=== PATIENT | male | born 1930 | race Caucasian/White ===

== ENCOUNTER 2017-04-16 12:35 | Inpatient (IN) | payer OTHER ==
[~2017-04-16] VITALS: Ht 185.4 cm; Wt 111.5 kg
[2017-04-16] MEDS ORDERED: METOPROLOL TARTRATE 1 MG/ML VIAL IV STA (12:47)
[2017-04-16 12:59] LABS: PROTHROMBIN TIME (PATIENT) 10.7 SECONDS (9.0-12.0)
[2017-04-16 13:03] LABS: BLOOD UREA NITROGEN 22 mg/dl (7-18); BUN/CREATININE RATIO 16.9 (10-20); CALCIUM 8.1 mg/dl (8.5-10.1); CARBON DIOXIDE 28 mmol/L (21-32); CHLORIDE 106 mmol/L (98-107); GLUCOSE 108 mg/dl (70-99); MAGNESIUM 2.5 mg/dl (1.8-2.4); POTASSIUM 4.1 mmol/L (3.5-5.1); SODIUM 141 mmol/L (136-145)
--- NOTE | 2017-04-16 13:09 | DIAGNOSTIC IMAGING REPORT ---
CHEST ONE VIEW PORTABLE CLINICAL HISTORY: Chest Pain dyspnea COMPARISON STUDY: None FINDINGS: Moderate emphysematous change. No focal infiltrate. Diaphragms smooth. IMPRESSION: Emphysematous change. No acute process. Electronically signed by: Elvis Maloney M.D. 04/16/2017 1:08 PM Dictated Date/Time: 04/16/2017 1:07 PM
[2017-04-16 13:13] LABS: CKMB/CK RATIO 1.4 (0-3.0); THYROID STIMULATING HORMONE 0.563 uIu/ml (0.300-4.500)
[2017-04-16 13:18] LABS: BASO % 0.6 %; BASO ABS # 0.03 K/uL (0-0.2); COMPLETE YES; EOS % 1.1 %; HEMATOCRIT 41.8 % (42-52); IG% 0.9 %; LYMPH % 19.5 %; LYMPH ABS # 1.05 K/uL (1.2-3.4); MEAN CELL VOLUME 96.8 fL (80-100); MEAN CORPUSCULAR HEMOGLOBIN 32.6 pg (25-34); MEAN CORPUSCULAR HGB CONC 33.7 g/dl (32-36); MEAN PLATELET VOLUME 9.6 fL (7.4-10.4); MONO % 6.9 %; PLATELET COUNT 97 K/uL (130-400); PLT ESTIMATE DECREASED; RED BLOOD COUNT 4.32 M/uL (4.7-6.1); WHITE BLOOD COUNT 5.38 K/uL (4.8-10.8)
[2017-04-16] MEDS ORDERED: FINA1TAB3 PO (13:31)
[2017-04-16] MEDS ORDERED: LEVO25TA5 PO (13:31)
[2017-04-16] MEDS ORDERED: TERA5CAP PO (13:31)
[2017-04-16] MEDS ORDERED: BISA-16 PO (13:31)
[2017-04-16] MEDS ORDERED: OXYC-643 PO (13:31)
[2017-04-16] MEDS ORDERED: IV FLUIDS COMPLETED PRN (14:00)
[2017-04-16 14:25] VITALS: BP 177/82; PULSE 65; TEMP 36.3; O2SAT 94; O2SAT 96; Ht 185.4 cm; Wt 111.5 kg
[2017-04-16] MEDS ORDERED: HEPARIN IV LOW DOSE NO BOLUS SCH (14:28)
[2017-04-16] MEDS ORDERED: ACETAMINOPHEN 325 MG TAB PO PRN (14:30)
[2017-04-16] MEDS ORDERED: ONDANSETRON INJ 2 MG/ML 2 ML VIAL IV PRN (14:30)
[2017-04-16] MEDS ORDERED: METOPROLOL TARTRATE 1 MG/ML VIAL IV PRN (14:30)
[2017-04-16] MEDS ORDERED: HEPARIN 25000 UNIT/500 ML D5W ONE (14:32)
[2017-04-16] MEDS ORDERED: SYN150 PO (14:37)
[2017-04-16] MEDS ORDERED: CARB25TA14 PO (14:37)
[2017-04-16] MEDS ORDERED: FLUT0.15 NAE (14:37)
[2017-04-16] MEDS ORDERED: FINA5TAB PO (14:37)
[2017-04-16] MEDS ORDERED: TERA1CAP63 PO (14:37)
[2017-04-16] MEDS ORDERED: HYDR25CA PO (14:37)
[2017-04-16] MEDS ORDERED: IPRA1AER2 INH (14:37)
[2017-04-16] MEDS ORDERED: FLUT1INH7 INH (14:37)
[2017-04-16] MEDS ORDERED: OXYCODONE/ACETAMINOPHEN 5-325 TAB PO PRN (14:45)
[2017-04-16] MEDS ORDERED: FLUTICASONE PROPIONATE NA SPR 16 GM BTL NAE PRN (14:45)
[2017-04-16] MEDS ORDERED: hydrOXYzine HCL 25 MG TAB PO PRN (14:45)
[2017-04-16] MEDS ORDERED: LEVALBUTEROL/IPRATROPIUM NEB INH PRN (14:45)
[2017-04-16] MEDS ORDERED: LEVALBUTEROL 0.63MG/3 ML NEB INH PRN (15:00)
[2017-04-16] MEDS ORDERED: IPRATROPIUM BROMIDE NEB SOLN 0.02% 2.5 ML VIAL INH PRN (15:00)
--- NOTE | 2017-04-16 15:23 | History and Physical ---
History & Physical Date & Time of Service: Apr 16, 2017 at 14:31 Chief Complaint: Tachycardia, Afib Primary Care Physician: Billy Mcfarland M.D. History of Present Illness Source: patient, clinic records This is an 86 y/o male with PMH of AAA s/p endovascular repair, hypertension, moderate COPD, mild pulmonary hypertension, BPH with chronic urinary retention, CKD stage III, hypothyroidism, and other problems listed below who was referred to the ED from clinic for tachycardia. Patient was seen by Dr. Funes in routine follow up for urinary retention today. Per Dr. Calvo's documentation in [facility], patient was noted to be SOB with elevated HR in urology clinic. EKG showed narrow complex tachycardia 144 bpm with regular HR consistent with paroxysmal SVT or atrial flutter. Pt was assessed by Dr. Calvo in urology clinic. Reportedly on monitor he had intermittent sinus rhythm at 75 bpm followed by recurrent tachycardia. Patient was transferred to ER by EMS and given dose of IV metoprolol 2.5 mg. In the ER patient's HR has been 60s-70s. EKG shows sinus rhythm. He is currently feeling asymptomatic. He notes feeling "heart racing" palpitations in clinic when tachycardia episodes occurred. He reports prior intermittent palpitations for several months. Palpitations occur with minimal exertion. He has been lightheaded. No syncopal episodes. He reports chronic fatigue and ARIAS with just a few steps of ambulation and orthopnea. Pt states his breathing is at baseline. Has chronic dry cough which is unchanged. Pt self caths BID and voids a small amount in between. Denies fever, URI symptoms, syncope, chest pain, N/V/D, dysuria, cloudy urine, calf pain, edema, abnormal bleeding focal neurologic symptoms. Prior stress echo 2013 was non-ischemic with EF 55-59%, no significant valvular disease. Prior right heart cath at [facility] in 2014 showed mild pulmonary hypertension. No prior diagnosis of arrhythmia. Denies hx of DM, TIA, CVA. Past Medical/Surgical History Medical Problems: (1) BPH w urinary obs/LUTS Status: Chronic (2) CKD (chronic kidney disease), stage III Status: Chronic (3) COPD (chronic obstructive pulmonary disease) Status: Chronic (4) Dysphagia, pharyngoesophageal phase Status: Chronic (5) GERD (gastroesophageal reflux disease) Status: Chronic (6) Hypertension Status: Chronic (7) Hypothyroidism Status: Chronic (8) Low back pain Status: Chronic (9) Osteoarthritis Status: Chronic Surgical Problems: (1) H/O colonoscopy with polypectomy Status: Chronic (2) H/O right heart catheterization Permanent Comment: mild pulmonary hypertension, 09/15/2015; [facility] Status: Chronic (3) History of cataract surgery Status: Chronic (4) S/P AAA repair Status: Chronic (5) S/P arthroscopy of knee Status: Chronic (6) S/P rotator cuff repair Status: Chronic (7) S/P tonsillectomy and adenoidectomy Status: Chronic Family History FH: colon cancer FATHER Social History Smoking Status: Former Smoker (quit 1983. prior 1.5 ppd x 40 years) Alcohol Use: 1 beer per day Housing status: lives alone Allergies Coded Allergies: NO KNOWN DRUG ALLERGIES (Unverified Allergy, Unknown, unknown, 04/16/17) Home Medications Scheduled Carbidopa/Levodopa (Sinemet 25MG/250MG), 1 TAB PO TID Finasteride (Proscar), 5 MG PO DAILY Fluticasone Furoate-Vilanterol (Breo Ellipta 200-25 Mcg/INH), 1 PUFF INH DAILY Levothyroxine Sodium (Synthroid), 150 MCG PO DAILY Terazosin Hcl (Hytrin), 10 MG PO HS Scheduled PRN Fluticasone Propionate (Nasal) (Flonase Allergy Relief), 2 SPRAYS JOSEF DAILY PRN for Nasal Congestion Hydroxyzine Pamoate (Vistaril), 1 CAP PO TID PRN for Itching Ipratropium-Albuterol (Combivent Respimat), 2 PUFFS INH Q6H PRN for Wheezing Oxycodone/Acetaminophen 5MG/325MG (Oxycodone/Acetaminophen 5MG/325MG), 1 TABLET PO Q4H PRN for Moderate Pain Review of Systems Ten systems reviewed and negative except as noted in HPI. Physical Exam Vital Signs Date Time Temp Pulse Resp B/P (MAP) Pulse Ox O2 Delivery O2 Flow Rate FiO2 04/16/17 14:13 61 16 162/78 94 Room Air 04/16/17 13:20 62 16 124/70 95 Room Air 04/16/17 13:02 66 16 138/72 95 Room Air 04/16/17 12:59 75 04/16/17 12:53 71 154/72 04/16/17 12:51 69 16 154/72 93 Room Air 04/16/17 12:45 36.6 73 19 126/79 94 Room Air 04/16/17 12:45 94 Room Air General Appearance: WD/WN, no apparent distress Head: normocephalic, atraumatic Eyes: normal inspection, PERRL, EOMI ENT: pharynx normal, + pertinent finding (hard of hearing) Neck: supple, no JVD, trachea midline Respiratory/Chest: lungs clear, normal breath sounds, no respiratory distress, no accessory muscle use Cardiovascular: regular rate, rhythm, no murmur Abdomen/GI: normal bowel sounds, non tender, soft Extremities/Musculoskelatal: normal inspection, no calf tenderness, no pedal edema Neurologic/Psych: alert, normal mood/affect, oriented x 3, + pertinent finding (no focal deficit on gross examination) Skin: normal color, warm/dry Diagnostics Laboratory Results Results Past 24 Hours Test 04/16/17 12:15 Range/Units White Blood Count 5.38 4.8-10.8 K/uL Red Blood Count 4.32 4.7-6.1 M/uL Hemoglobin 14.1 14.0-18.0 g/dL Hematocrit 41.8 42-52 % Mean Corpuscular Volume 96.8 80-100 fL Mean Corpuscular Hemoglobin 32.6 25-34 pg Mean Corpuscular Hemoglobin Concent 33.7 32-36 g/dl Platelet Count 97 130-400 K/uL Mean Platelet Volume 9.6 7.4-10.4 fL Neutrophils (%) (Auto) 71.0 % Lymphocytes (%) (Auto) 19.5 % Monocytes (%) (Auto) 6.9 % Eosinophils (%) (Auto) 1.1 % Basophils (%) (Auto) 0.6 % Neutrophils # (Auto) 3.82 1.4-6.5 K/uL Lymphocytes # (Auto) 1.05 1.2-3.4 K/uL Monocytes # (Auto) 0.37 0.11-0.59 K/uL Eosinophils # (Auto) 0.06 0-0.5 K/uL Basophils # (Auto) 0.03 0-0.2 K/uL RDW Standard Deviation 48.7 36.4-46.3 fL RDW Coefficient of Variation 13.7 11.5-14.5 % Immature Granulocyte % (Auto) 0.9 % Immature Granulocyte # (Auto) 0.05 0.00-0.02 K/uL Platelet Estimate DECREASED Prothrombin Time 10.7 9.0-12.0 SECONDS Prothromb Time International Ratio 1.0 0.9-1.1 Activated Partial Thromboplast Time 25.0 21.0-31.0 SECONDS Partial Thromboplastin Ratio 1.0 Sodium Level 141 136-145 mmol/L Potassium Level 4.1 3.5-5.1 mmol/L Chloride Level 106 98-107 mmol/L Carbon Dioxide Level 28 21-32 mmol/L Anion Gap 7.0 3-11 mmol/L Blood Urea Nitrogen 22 7-18 mg/dl Creatinine 1.30 0.60-1.40 mg/dl Est Creatinine Clear Calc Drug Dose 56.0 ml/min Estimated GFR () 58.1 Estimated GFR (Non- 50.1 BUN/Creatinine Ratio 16.9 10-20 Random Glucose 108 70-99 mg/dl Calcium Level 8.1 8.5-10.1 mg/dl Magnesium Level 2.5 1.8-2.4 mg/dl Total Creatine Kinase 94 39-308 U/L Creatine Kinase MB 1.3 0.5-3.6 ng/ml Creatine Kinase MB Ratio 1.4 0-3.0 Troponin I < 0.015 0-0.045 ng/ml Thyroid Stimulating Hormone (TSH) 0.563 0.300-4.500 uIu/ml Free Thyroxine 1.46 0.80-1.60 ng/dl Diagnostic Radiology CHEST ONE VIEW PORTABLE CLINICAL HISTORY: Chest Pain dyspnea COMPARISON STUDY: None FINDINGS: Moderate emphysematous change. No focal infiltrate. Diaphragms smooth. IMPRESSION: Emphysematous change. No acute process. EKG sinus rhythm, 1st degree AV block, occasional PVC, rate 68 bpm, nonspecific T wave inversion in aVL, no ST abnormality Impression Assessment and Plan TACHYCARDIA Unclear onset; had intermittent palpations for several months Discovered at urology clinic; was SOB with elevated HR; EKG showed narrow complex tachycardia 144 bpm with regular HR consistent with paroxysmal SVT or atrial flutter; assessed by Dr. Calvo at clinic; monitor showed intermittent sinus rhythm 75 bpm followed by recurrent tachycardia Sent to ER as recommended by Dr. Calvo Received Lopressor 2.5 mg IV on arrival to ER In ER has been in sinus rhythm rate 60s-70s Currently asymptomatic Electrolytes and TSH WNL; no clear infection- will check UA Prior stress echo 08/2014 was non-ischemic with EF 55-59%, no significant valvular disease; Prior right heart cath at [facility] in 2014 showed mild pulmonary hypertension Check echo Lopressor 2.5 mg q6h PRN HR >130 CHADS2 score is 2 for age and hypertension Start on IV heparin Consult cardiology HYPERTENSION BP intermittently elevated to 150s-160s systolic in ER Likely due to anxiety of being in ER Monitor MODERATE COPD Not in acute exacerbation Continue Breo Ellipta inhaler Will change PRN ipratropium-albuterol inhaler to PRN Xopenex-Atrovent neb due to tachycardia BPH WITH CHRONIC URINARY RETENTION Continue finasteride and terazosin Self cath BID as he does at home CKD STAGE III Creat is stable from baseline Monitor renal function HYPOTHYROIDISM Continue levothyroxine CHRONIC LOW BACK PAIN Continue PRN Percocet DVT PROPHYLAXIS Heparin drip CODE STATUS Full code per my discussion with the patient. States he would not want prolonged life support. DISPOSITION Observation to telemetry Follows with Dr. Mcfarland for primary care Patient seen in collaboration with Dr. White. Please see his addendum. 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 Dr Nilda White VTE Prophylaxis VTE Risk Assessment Done? Y/N: Yes Risk Level: Moderate
[2017-04-16] MEDS ORDERED: PNEUMOCOCCAL POLYSACCHARIDES 25 MCG/0.5 ML VIAL/SYR IM. ONE (17:15)
[2017-04-16] MEDS ORDERED: PNEUMOCOCCAL ADMINISTRATION CHARGE ONE (17:15)
[2017-04-16] MEDS ORDERED: HEPARIN 25,000 UNIT/500ML D5W 500 ML IV PRN (18:15)
--- NOTE | 2017-04-16 19:22 | EMERGENCY ROOM VISIT NOTE ---
History Report prepared by Paul: Carolyn Fleming Under the Supervision of: Dr. Mehrdad Batista M.D. First contact with patient: 12:35 Chief Complaint: CARDIAC ASSESSMENT Stated Complaint: TACHYCARDIA, AFIB History of Present Illness The patient is an 86 year old male who presents to the Emergency Room requesting a cardiac assessment. The patient reports that he went to a urology appointment for issues with his prostate. According to Doctor Lubna, the patient has an EKG performed that revealed SVT vs A-fib. Dr. Calvo reports that he was evaluated by him at his cardiology office and was referred to the ED. Dr. Calvo believes he should be evaluated and treated further. The patient state that he has felt more weak and tired than usual. He reports that he has been lightheaded as well. He denies any chest pain and swelling in his legs. He notes that currently he feels pretty normal. Source of History: patient, other (Dr. Calvo) Onset: prior to arrival Position: other (global) Quality: other (global) Timing: other (episode) Associated Symptoms: + fatigue, + weakness, No chest pain Note: The patient complains of lightheadedness. The patient denies any leg swelling. Review of Systems See HPI for pertinent positives & negatives. A total of 10 systems reviewed and were otherwise negative. Past Medical & Surgical Medical Problems: (1) BPH w urinary obs/LUTS (2) Chronic renal disease (3) CKD (chronic kidney disease), stage III (4) COPD (chronic obstructive pulmonary disease) (5) Dysphagia, pharyngoesophageal phase (6) GERD (gastroesophageal reflux disease) (7) Hypertension (8) Hypothyroidism (9) Low back pain (10) Osteoarthritis (11) Tachycardia Surgical Problems: (1) H/O colonoscopy with polypectomy (2) H/O right heart catheterization (3) History of cataract surgery (4) S/P AAA repair (5) S/P arthroscopy of knee (6) S/P rotator cuff repair (7) S/P tonsillectomy and adenoidectomy Family History No pertinent family history Social History Smoking Status: Former Smoker Marital Status: single Housing Status: lives alone Current/Historical Medications Scheduled Carbidopa/Levodopa (Sinemet 25MG/250MG), 1 TAB PO TID Finasteride (Proscar), 5 MG PO DAILY Fluticasone Furoate-Vilanterol (Breo Ellipta 200-25 Mcg/INH), 1 PUFF INH DAILY Levothyroxine Sodium (Synthroid), 150 MCG PO DAILY Terazosin Hcl (Hytrin), 10 MG PO HS Scheduled PRN Fluticasone Propionate (Nasal) (Flonase Allergy Relief), 2 SPRAYS JOSEF DAILY PRN for Nasal Congestion Hydroxyzine Pamoate (Vistaril), 1 CAP PO TID PRN for Itching Ipratropium-Albuterol (Combivent Respimat), 2 PUFFS INH Q6H PRN for Wheezing Oxycodone/Acetaminophen 5MG/325MG (Oxycodone/Acetaminophen 5MG/325MG), 1 TABLET PO Q4H PRN for Moderate Pain Allergies Coded Allergies: NO KNOWN DRUG ALLERGIES (Unverified Allergy, Unknown, unknown, 04/16/17) Physical Exam Vital Signs Date Time Temp Pulse Resp B/P (MAP) Pulse Ox O2 Delivery O2 Flow Rate FiO2 04/16/17 13:20 62 16 124/70 95 Room Air 04/16/17 13:02 66 16 138/72 95 Room Air 04/16/17 12:59 75 04/16/17 12:53 71 154/72 04/16/17 12:51 69 16 154/72 93 Room Air 04/16/17 12:45 36.6 73 19 126/79 94 Room Air 04/16/17 12:45 94 Room Air Physical Exam GENERAL: Patient is well appearing and in no acute distress. HEENT: No acute trauma, normocephalic atraumatic, mucous membranes moist, no nasal congestion, no scleral icterus. NECK: No stridor, no adenopathy, no meningismus, trachea is midline. LUNGS: No dyspnea. Clear to auscultation and equal bilaterally. No wheeze, no rhonchi. HEART: Frequently flipping back and forth between rapid heart rate and normal sinus rhythm. No murmurs, rubs, gallops appreciated. ABDOMEN: Soft, nontender, bowel sounds positive, no masses appreciated, no peritonitis. BACK: No midline tenderness, no CVA tenderness EXTREMITIES: Normal motion all extremities, no cyanosis, no edema. NEUROLOGIC: Alert and oriented, no acute motor or sensory deficits, no focal weakness, cranial nerves grossly intact. SKIN: No rash, no jaundice, no diaphoresis. Medical Decision & Procedures ER Provider Diagnostic Interpretation: Radiology results and stated below per my review and radiologist interpretation: CHEST ONE VIEW PORTABLE CLINICAL HISTORY: Chest Pain dyspnea COMPARISON STUDY: None FINDINGS: Moderate emphysematous change. No focal infiltrate. Diaphragms smooth. IMPRESSION: Emphysematous change. No acute process. Electronically signed by: Elvis Maloney M.D. 04/16/2017 1:08 PM Dictated Date/Time: 04/16/2017 1:07 PM Laboratory Results 04/16/17 12:15 Red Blood Count 4.32, Mean Corpuscular Volume 96.8, Mean Corpuscular Hemoglobin 32.6, Mean Corpuscular Hemoglobin Concent 33.7, Mean Platelet Volume 9.6, Neutrophils (%) (Auto) 71.0, Lymphocytes (%) (Auto) 19.5, Monocytes (%) (Auto) 6.9, Eosinophils (%) (Auto) 1.1, Basophils (%) (Auto) 0.6, Neutrophils # (Auto) 3.82, Lymphocytes # (Auto) 1.05, Monocytes # (Auto) 0.37, Eosinophils # (Auto) 0.06, Basophils # (Auto) 0.03 04/16/17 12:15 Test 04/16/17 12:15 White Blood Count 5.38 K/uL (4.8-10.8) Red Blood Count 4.32 M/uL (4.7-6.1) Hemoglobin 14.1 g/dL (14.0-18.0) Hematocrit 41.8 % (42-52) Mean Corpuscular Volume 96.8 fL (80-100) Mean Corpuscular Hemoglobin 32.6 pg (25-34) Mean Corpuscular Hemoglobin Concent 33.7 g/dl (32-36) Platelet Count 97 K/uL (130-400) Mean Platelet Volume 9.6 fL (7.4-10.4) Neutrophils (%) (Auto) 71.0 % Lymphocytes (%) (Auto) 19.5 % Monocytes (%) (Auto) 6.9 % Eosinophils (%) (Auto) 1.1 % Basophils (%) (Auto) 0.6 % Neutrophils # (Auto) 3.82 K/uL (1.4-6.5) Lymphocytes # (Auto) 1.05 K/uL (1.2-3.4) Monocytes # (Auto) 0.37 K/uL (0.11-0.59) Eosinophils # (Auto) 0.06 K/uL (0-0.5) Basophils # (Auto) 0.03 K/uL (0-0.2) RDW Standard Deviation 48.7 fL (36.4-46.3) RDW Coefficient of Variation 13.7 % (11.5-14.5) Immature Granulocyte % (Auto) 0.9 % Immature Granulocyte # (Auto) 0.05 K/uL (0.00-0.02) Platelet Estimate DECREASED Prothrombin Time 10.7 SECONDS (9.0-12.0) Prothromb Time International Ratio 1.0 (0.9-1.1) Activated Partial Thromboplast Time 25.0 SECONDS (21.0-31.0) Partial Thromboplastin Ratio 1.0 Anion Gap 7.0 mmol/L (3-11) Est Creatinine Clear Calc Drug Dose 56.0 ml/min Estimated GFR () 58.1 Estimated GFR (Non- 50.1 BUN/Creatinine Ratio 16.9 (10-20) Calcium Level 8.1 mg/dl (8.5-10.1) Magnesium Level 2.5 mg/dl (1.8-2.4) Total Creatine Kinase 94 U/L (39-308) Creatine Kinase MB 1.3 ng/ml (0.5-3.6) Creatine Kinase MB Ratio 1.4 (0-3.0) Troponin I < 0.015 ng/ml (0-0.045) Thyroid Stimulating Hormone (TSH) 0.563 uIu/ml (0.300-4.500) Free Thyroxine 1.46 ng/dl (0.80-1.60) Laboratory results as reviewed by me. Medications Administered Medications (Trade) Dose Ordered Sig/Asher Route Start Time Stop Time Status Last Admin Dose Admin Metoprolol Tartrate (Lopressor Iv) 2.5 mg NOW STAT IV 04/16/17 12:47 04/16/17 12:48 DC 04/16/17 12:53 2.5 MG ECG Indication: other (cardiac assessment) Rate (beats per minute): 69 Rhythm: sinus rhythm Findings: 1st degree AV block, PVC (multiple), no acute ischemic change Comparison ECG Date: no prior available ED Course 1215: Prior to the patient's arrival, i discussed the case with Dr. Calvo who made me aware of the case. 1244: The patient was evaluated in room A10. A complete history and physical exam was performed. 1247: Ordered Lopressor Iv 2.5 mg IV. 1334: Discussed the patient's case with Dr. White. The patient will be evaluated for further treatment and disposition. 1349: I reevaluated the patient and he is feeling well. He is agreeable to come into the hospital. Medical Decision Medication Reconciliation: I attest that I have personally reviewed the patient 's current medication list. Blood Pressure Screening: Patient was found to have a slightly elevated blood pressure due to circumstances and will continued to be monitored by inpatient providers. Differential: NSR, SVT, PACs, PVCs, Cardiac Dysrhythmia, Endocrine Dysfunction, Electrolyte/Metabolic Abnormality, Pulmonary Embolism, Infectious, GI, amongst other pathologies entertained. 86 yr old male who was at urology clinic for evaluation of chronic prostate issues was found to be quite tachycardic and transferred to ED for further evaluation. He is rapidly flipping back and forth from HR 60s70s to 140s. Unclear if afib/flutter vs SVT. No clear evidence infectious etiology. Labs look OK. CXR with chronic lung disease already known. With discussion Dr Calvo he was given small dose IV lopressor. This seems to have resolved tachycardic issues without causing hypotension nor bradycardia. Stable though given unclear cause and possible need for pacemaker/ICD I have consulted Hospitalist at Dr Calvo request. Consults Consulting Physician: Dr. Calvo Returned Call: [phone] Prior to the patient's arrival, i discussed the case with Dr. Calvo who made me aware of the case. Additional Consults: Time Called: 1330 Consulted Physician: Dr. White Returned Call: [phone] Additional Comments: Discussed the patient's case with Dr. White. The patient will be evaluated for further treatment and disposition. Impression Primary Impression: Tachycardia-bradycardia syndrome Scribe Attestation The scribe's documentation has been prepared under my direction and personally reviewed by me in its entirety. I confirm that the note above accurately reflects all work, treatment, procedures, and medical decision making performed by me. Departure Information Dispostion Being Evaluated By Hospitalist Referrals No Doctor, Assigned (PCP) Patient Instructions [facility]
[2017-04-16] MEDS: CARBIDOPA/LEVODOPA 25-250 1 EA TAB PO SCH (20:32)
[2017-04-16 20:41] LABS: PARTIAL THROMBOPLASTIN RATIO 1.5
[2017-04-16] MEDS ORDERED: HEPARIN IV BOLUS 4,500 UNIT in SYRINGE 0 ML IV ONE (21:00)
[2017-04-16 22:44] VITALS: BP 138/73; PULSE 72; TEMP 36.7; O2SAT 91
[2017-04-17] VITALS (15 sets, daily range): BP systolic 120–180; BP diastolic 63–88; PULSE 61–87; TEMP 36.3–36.8; O2SAT 91–98
[2017-04-17 00:42] LABS: URINE APPEARANCE CLEAR (CLEAR); URINE BILIRUBIN NEG (NEG); URINE COLOR YELLOW; URINE EPITHELIAL CELL AUTO >30 /lpf (0-5); URINE NITRITE POS (NEG); URINE SPECIFIC GRAVITY 1.014 (1.000-1.030); UROBILINOGEN NEG (NEG); ZZURINE CULT IF INDIC CATH YES
[2017-04-17 00:44] LABS: MANUAL MICROSCOPIC REQUIRED? NO; REVIEW REQ? NO
[2017-04-17 03:39] LABS: HEMATOCRIT 39.9 % (42-52); MEAN CELL VOLUME 96.8 fL (80-100); MEAN CORPUSCULAR HEMOGLOBIN 31.6 pg (25-34); MEAN CORPUSCULAR HGB CONC 32.6 g/dl (32-36); RED BLOOD COUNT 4.12 M/uL (4.7-6.1); WHITE BLOOD COUNT 5.26 K/uL (4.8-10.8)
[2017-04-17 03:41] LABS: MEAN PLATELET VOLUME 9.5 fL (7.4-10.4); PLATELET COUNT 97 K/uL (130-400)
[2017-04-17 04:02] LABS: PARTIAL THROMBOPLASTIN RATIO 2.6
[2017-04-17 04:04] LABS: BUN/CREATININE RATIO 19.9 (10-20); CALCIUM 7.9 mg/dl (8.5-10.1); CREATININE 1.2 mg/dl (0.60-1.40); MAGNESIUM 2.4 mg/dl (1.8-2.4); POTASSIUM 3.7 mmol/L (3.5-5.1)
[2017-04-17] MEDS: LEVOTHYROXINE 150 MCG TAB PO SCH (06:04)
--- NOTE | 2017-04-17 08:46 | ECHOCARDIOGRAM REPORT ---
*NOTICE TO RECEIVING [employer] This information is strictly Confidential and protected under [place] law. [place] law prohibits you from making any further disclosure of this information unless further disclosure is expressly permitted by the written consent of the person to whom it pertains or is authorized by law. A general authorization for the release of medical or other information is not sufficient for this purpose. Hospital accepts no responsibility if the information is made available to any other person, INCLUDING THE PATIENT. Interpretation Summary * Conclusions -- * The study was technically limited. * The left ventricle is normal in size. * No regional wall motion abnormalities noted. * Ejection Fraction = 60-65%. Procedure Details * The study was technically difficult. * The study was technically limited. * Limited views were obtained. * There were technical limitations due to patient'sPoor acoustic windows secondary to severe lung disease. Left Ventricle * The left ventricle is normal in size. * There is mild concentric left ventricular hypertrophy. * Ejection Fraction = 60-65%. * No regional wall motion abnormalities noted. Atria * The left atrial size is normal. * Right atrial size is normal. * Lipomatous hypertrophy of the interatrial septum is noted. Mitral Valve * The mitral valve is grossly normal. * There is no mitral valve stenosis. * There is no mitral regurgitation noted. Tricuspid Valve * The tricuspid valve is not well visualized, but is grossly normal. * There is trace tricuspid regurgitation. Aortic Valve * The aortic valve is not well visualized. * No hemodynamically significant valvular aortic stenosis. * There is no significant aortic regurgitation. Great Vessels * The aortic root is normal size. Pericardium/Pleural * There is no pericardial effusion. Great Vessels * Normal inferior vena cava diameter and respiratory variation suggests normal central venous pressure. Left Ventricular Diastolic Function * Grade I diastolic dysfunction, (abnormal relaxation pattern). MMode 2D Measurements and Calculations LVAd ap4 35.8 cm\S\2 LVLd ap4 8.5 cm EDV(MOD-sp4) 123.8 ml EDV(sp4-el) 128.2 ml LVAs ap4 19.7 cm\S\2 LVLs ap4 7.9 cm ESV(MOD-sp4) 40.5 ml ESV(sp4-el) 41.3 ml EF(MOD-sp4) 67.3 % EF(sp4-el) 67.8 % LVAd ap2 36.3 cm\S\2 LVLd ap2 8.7 cm EDV(MOD-sp2) 121.4 ml EDV(sp2-el) 129.0 ml LVAs ap2 18.3 cm\S\2 LVLs ap2 7.1 cm ESV(MOD-sp2) 39.2 ml ESV(sp2-el) 40.0 ml EF(MOD-sp2) 67.8 % EF(sp2-el) 69.0 % LVLd %diff 2.3 % EDV(MOD-bp) 125.4 ml LVLs %diff -11.94 % ESV(MOD-bp) 41.9 ml EF(MOD-bp) 66.6 % SV(MOD-sp4) 83.3 ml SI(MOD-sp4) 35.2 ml/m\S\2 SV(MOD-sp2) 82.3 ml SI(MOD-sp2) 34.7 ml/m\S\2 SV(MOD-bp) 83.6 ml SI(MOD-bp) 35.3 ml/m\S\2 SV(sp4-el) 86.9 ml SI(sp4-el) 36.7 ml/m\S\2 SV(sp2-el) 89.0 ml SI(sp2-el) 37.6 ml/m\S\2 Doppler Measurements and Calculations MV E max antoni 58.8 cm/sec MV A max antoni 76.0 cm/sec MV E/A 0.77 MV dec time 0.24 sec LV V1 max PG 5.9 mmHg LV V1 max 121.6 cm/sec TR max antoni 194.3 cm/sec
[2017-04-17] MEDS: CARBIDOPA/LEVODOPA 25-250 1 EA TAB PO SCH ×3 (09:02→20:29)
[2017-04-17] MEDS: FINASTERIDE 5 MG TAB PO SCH (09:02)
--- NOTE | 2017-04-17 09:12 | Progress Note ---
Medicine Progress Note Date & Time of Visit: Apr 17, 2017 at 09:06. Subjective patient seen resting in bed, comfortable daughter Yary at bedside states he had a good night denies chest pain, palpitations, dizziness, dyspnea noted to have narrow complex tachycardia episodes on tele, correlated when patient is moving otherwise no other symptoms Objective Last 8 Hrs Date Time Temp Pulse Resp B/P (MAP) Pulse Ox O2 Delivery O2 Flow Rate FiO2 04/17/17 08:03 36.3 61 18 174/88 (116) 94 Room Air 04/17/17 08:00 Room Air 04/17/17 04:12 36.5 70 18 143/79 (100) 92 04/17/17 04:00 Room Air Physical Exam: General- oriented x 3, not in distress, speaks in sentences with no effort Head- atraumatic Eyes- EOMI, anicteric ENT- oropharynx clear Neck- supple, no JVD, no adenopathy Lungs- clear breath sounds bilaterally Heart- regular rhythm; no murmur, normal rate Abdomen- normal bowel sounds, soft, nontender Extremities- no pretibial edema, no calf tenderness; peripheral pulses intact Neuro- alert, oriented x 3; no gross focal neuro deficits Skin- warm & dry Laboratory Results: Last 24 Hours Test 04/16/17 12:15 04/16/17 20:20 04/16/17 22:45 04/17/17 03:08 White Blood Count 5.38 K/uL 5.26 K/uL Red Blood Count 4.32 M/uL 4.12 M/uL Hemoglobin 14.1 g/dL 13.0 g/dL Hematocrit 41.8 % 39.9 % Mean Corpuscular Volume 96.8 fL 96.8 fL Mean Corpuscular Hemoglobin 32.6 pg 31.6 pg Mean Corpuscular Hemoglobin Concent 33.7 g/dl 32.6 g/dl Platelet Count 97 K/uL 97 K/uL Mean Platelet Volume 9.6 fL 9.5 fL Neutrophils (%) (Auto) 71.0 % Lymphocytes (%) (Auto) 19.5 % Monocytes (%) (Auto) 6.9 % Eosinophils (%) (Auto) 1.1 % Basophils (%) (Auto) 0.6 % Neutrophils # (Auto) 3.82 K/uL Lymphocytes # (Auto) 1.05 K/uL Monocytes # (Auto) 0.37 K/uL Eosinophils # (Auto) 0.06 K/uL Basophils # (Auto) 0.03 K/uL RDW Standard Deviation 48.7 fL 48.7 fL RDW Coefficient of Variation 13.7 % 13.7 % Immature Granulocyte % (Auto) 0.9 % Immature Granulocyte # (Auto) 0.05 K/uL Platelet Estimate DECREASED Prothrombin Time 10.7 SECONDS Prothromb Time International Ratio 1.0 Activated Partial Thromboplast Time 25.0 SECONDS 39.1 SECONDS 66.7 SECONDS Partial Thromboplastin Ratio 1.0 1.5 2.6 Sodium Level 141 mmol/L 140 mmol/L Potassium Level 4.1 mmol/L 3.7 mmol/L Chloride Level 106 mmol/L 105 mmol/L Carbon Dioxide Level 28 mmol/L 31 mmol/L Anion Gap 7.0 mmol/L 4.0 mmol/L Blood Urea Nitrogen 22 mg/dl 24 mg/dl Creatinine 1.30 mg/dl 1.20 mg/dl Est Creatinine Clear Calc Drug Dose 56.0 ml/min 60.7 ml/min Estimated GFR () 58.1 64.0 Estimated GFR (Non- 50.1 55.2 BUN/Creatinine Ratio 16.9 19.9 Random Glucose 108 mg/dl 106 mg/dl Calcium Level 8.1 mg/dl 7.9 mg/dl Magnesium Level 2.5 mg/dl 2.4 mg/dl Total Creatine Kinase 94 U/L Creatine Kinase MB 1.3 ng/ml Creatine Kinase MB Ratio 1.4 Troponin I < 0.015 ng/ml Thyroid Stimulating Hormone (TSH) 0.563 uIu/ml Free Thyroxine 1.46 ng/dl Urine Color YELLOW Urine Appearance CLEAR Urine pH 6.0 Urine Specific [place] 1.014 Urine Protein NEG Urine Glucose (UA) NEG Urine Ketones NEG Urine Occult Blood NEG Urine Nitrite POS Urine Bilirubin NEG Urine Urobilinogen NEG Urine Leukocyte Esterase SMALL Urine WBC (Auto) 10-30 /hpf Urine RBC (Auto) 0-4 /hpf Urine Hyaline Casts (Auto) 0 /lpf Urine Epithelial Cells (Auto) >30 /lpf Urine Bacteria (Auto) 4+ Date/Time Source Procedure Growth Status 04/16/17 22:45 Urine,Catheterized Urine Culture Pending Received Assessment & Plan 86 year old male with history of COPD, Pulmonary Hypertension, AAA s/p Repair, BPH, Hypothyroidism presenting with tachycardia. 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 ATRIAL FIBRILLATION Unclear onset; had intermittent palpations for several months Discovered at urology clinic; was SOB with elevated HR; EKG showed narrow complex tachycardia 144 bpm with regular HR consistent with paroxysmal SVT or atrial flutter; assessed by Dr. Calvo at clinic; monitor showed intermittent sinus rhythm 75 bpm followed by recurrent tachycardia Sent to ER Received Lopressor 2.5 mg IV on arrival to ER In ER has been in sinus rhythm rate 60s-70s Electrolytes and TSH WNL; no clear infection- will check UA echo pending for Pacemaker today per discussion with Dr. Neff maintain NPO HYPERTENSION mild elevation this morning monitor MODERATE COPD stable Continue Breo Ellipta inhaler BPH WITH CHRONIC URINARY RETENTION Continue finasteride and terazosin Self cath BID as he does at home CKD STAGE III crea at baseline HYPOTHYROIDISM tsh/t4 normal Continue levothyroxine CHRONIC LOW BACK PAIN Continue PRN Percocet DVT PROPHYLAXIS hold anticoag for now for pacemaker placement CODE STATUS Full code DISPOSITION pending lives at home Follows with Dr. Mcfarland for primary care Current Inpatient Medications: Current Inpatient Medications Medications (Trade) Dose Ordered Sig/Asher Route Start Time Stop Time Status Last Admin Dose Admin Miscellaneous (Iv Fluids Completed) 1 ea PRN PRN N/A 04/16/17 14:00 04/16/18 13:59 Acetaminophen (Tylenol Tab) 650 mg Q4H PRN PO 04/16/17 14:30 05/16/17 14:29 Ondansetron HCl (Zofran Inj) 4 mg Q6H PRN IV 04/16/17 14:30 05/16/17 14:29 Metoprolol Tartrate (Lopressor Iv) 2.5 mg Q6 PRN IV 04/16/17 14:30 05/16/17 14:29 Carbidopa/Levodopa (Sinemet 25/ 250MG Tab) 1 tab TID PO 04/16/17 21:00 05/16/17 20:59 04/17/17 09:02 1 TAB Finasteride (Proscar Tab) 5 mg DAILY PO 04/17/17 09:00 05/17/17 08:59 04/17/17 09:02 5 MG Fluticasone Propionate (Flonase Nasal [place]) 2 sprays DAILY PRN JOSEF 04/16/17 14:45 05/16/17 14:44 Levothyroxine Sodium (Synthroid Tab) 150 mcg DAILYBB PO 04/17/17 06:00 05/17/17 06:59 04/17/17 06:04 150 MCG Oxycodone/ Acetaminophen (Percocet 5-325mg Tab) 1 tab Q4H PRN PO 04/16/17 14:45 04/30/17 14:44 Terazosin HCl (Hytrin Cap) 10 mg HS PO 04/16/17 21:00 05/16/17 20:59 04/16/17 20:33 10 MG Miscellaneous Information (Order Awaiting Action) 1 ea QS N/A 04/16/17 16:00 05/16/17 15:59 Hydroxyzine HCl (Vistaril Tab) 25 mg TID PRN PO 04/16/17 14:45 05/16/17 14:44 Ipratropium [place] (Atrovent 0.02% 0.5MG/2.5ML Neb) 0.5 mg Q6H PRN INH 04/16/17 15:00 05/16/17 14:59 Levalbuterol (Xopenex 0.63 Mg/ 3 Ml Neb) 0.63 mg Q6H PRN INH 04/16/17 15:00 05/16/17 14:59
--- NOTE | 2017-04-17 10:12 | CARDIOLOGY CONSULTATION ---
DATE OF CONSULTATION: 04/17/2017 The patient seen and examined. Chart, medications, telemetry reviewed. REFERRING: Dr. Harp. PRIMARY CARE PHYSICIAN: Dr. Billy Mcfarland. INDICATIONS: Tachybrady syndrome. HISTORY OF PRESENT ILLNESS: The patient is an 86-year-old male whose past history is notable for chronic obstructive lung disease, stage III chronic renal insufficiency, history of atherosclerotic peripheral vascular disease, status post endovascular abdominal aortic aneurysm repair, BPH, who presented yesterday for evaluation of urinary symptoms. On initial assessment in the urology clinic, he was found to be significantly tachycardic with EKG demonstrating atrial tachycardia with rapid ventricular response, rate 140s with intermittent spontaneous conversion to sinus rhythm with associated pauses and bradycardia, with baseline rhythm in sinus rhythm with intraventricular conduction delay and first-degree AV block. He is referred for hospitalization. He does note intermittent episodes of lightheadedness and dizziness in the past. Notes no true syncope. Notes no chest pains. Notes no tachypalpitations. Notes no dizziness with exertion. Appetite and weight have been stable. He has had no history of TIA or stroke. Notes no acute neurologic complaints. Notes no unexplained fevers or infections. Has chronic dyspnea secondary to underlying lung disease. He is not O2 dependent at this time. He has undergone prior evaluations including right heart catheterization in 08/2015, which demonstrated mild pulmonary hypertension. He has also had past stress testing which was negative for ischemia. He notes no underlying history of rheumatic fever or scarlet fever. Notes no history of bleeding difficulties. Notes no melena, hematochezia, dysuria or hematuria. Has chronic sleep disruption, ill defined. Lipids have been normal without lipid lowering therapies. ALLERGIES: VICODIN. MEDICATIONS: Prior to hospitalization were terazosin 10 mg at bedtime, finasteride 5 mg every day, oxycodone p.r.n. back pain, levothyroxine 150 mcg p.o. daily, furosemide 40 mg p.o. daily, Flonase nasal inhaler, Sinemet 25 mg/250 mg t.i.d. PAST SURGICAL HISTORY: Notable for prior tonsillectomy, cataract surgery, abdominal aortic aneurysm repair, arthroscopic knee surgery, rotator cuff repair. FAMILY HISTORY: Not specifically notable for cardiac disease. SOCIAL HISTORY: The patient has a [id number] history of tobacco use but quit remotely in 1983. Drinks up to 1 beer per day, none to excess. PHYSICAL EXAMINATION: GENERAL: The patient is a pleasant, age-appropriate male, currently in no acute distress. He has not specifically been aware of tachyarrhythmias prior to hospitalization, though has had intermittent dizzy spells and lightheaded spells on current examination. VITAL SIGNS: Heart rate is 60, blood pressure is 174/88. HEENT: Normocephalic, atraumatic. NECK: Thick. LUNGS: Reveal diminished breath sounds but without rhonchi, rale or wheeze. CARDIOVASCULAR: Regular with less than grade 1/6 systolic murmur. ABDOMEN: Obese, soft, nontender. EXTREMITIES: Without cyanosis or clubbing. There is no peripheral edema. There are intact distal pulses at 2/4. There are no audible abdominal or femoral bruits. DATA: EKG on presentation last night demonstrated sinus rhythm with atrial and ventricular ectopy, marked first-degree AV block, left axis deviation. Echocardiogram today demonstrates preserved LV systolic function, EF 60-65%, no significant valvular disease, technically limited study. LABORATORY STUDIES: White cell count is 5.2, hemoglobin is 13.0, hematocrit is 39.9. Sodium is 140, potassium is 3.7, chloride is 105, bicarb is 31, BUN is 24, creatinine is 1.2. Troponin is less than 0.015. TSH is 0.5. Chest x-ray revealed no infiltrate or edema, with emphysematous changes. IMPRESSION: An 86-year-old male with chronic obstructive lung disease, past history of peripheral vascular disease, status post abdominal aortic aneurysm repair, endovascular, in 2014, presented for routine urologic evaluation yesterday and was found to have intermittent atrial tachycardia with pauses and bradyarrhythmias on conversion. He has underlying conduction system disease on baseline EKG with intraventricular conduction delay and marked first-degree atrioventricular block. Findings reflect tachybrady syndrome with the patient noting symptoms of occasional lightheadedness and dizziness. RECOMMENDATIONS: We will keep n.p.o. and refer for EP evaluation. Question of whether intervene on atrial tachycardia, likely multifocal atrial tachycardia versus pacemaker insertion and initiation of antiarrhythmic therapy, likely initially with calcium channel yady given underlying obstructive lung disease and preserved LV function. Discussed with the patient, he is tentatively scheduled for possible pacemaker this afternoon if indicated. We will follow the patient in the hospital. JEREMÍAS
--- NOTE | 2017-04-17 13:01 | Progress Note ---
Progress Note Date of Service Apr 17, 2017. Progress Note FULL EP CONSULT DICTATED; PT WITH TBS FOR PPM TODAY
[2017-04-17] MEDS ORDERED: LIDOCAINE HCL 1% 20 ML VIAL ONE ×2 (14:55→15:18)
[2017-04-17] MEDS ORDERED: BACITRACIN 50000 UNIT VIAL ONE (14:55)
[2017-04-17] MEDS ORDERED: BUPIVACAINE 0.5 % 5 MG/1 ML MPF 30ML VIAL ONE ×2 (14:55→15:18)
[2017-04-17] MEDS ORDERED: KEFZOL SPECIAL PROCEDURE STOCK 1 GM ADDVIAL IV ONE (15:07)
[2017-04-17] MEDS ORDERED: FENTANYL CITRATE INJ 50 MCG/1 ML 2 ML VIAL ONE ×2 (15:11→16:11)
[2017-04-17] MEDS ORDERED: MIDAZOLAM HCL 5 MG/ML 1 ML VIAL ONE (15:11)
--- NOTE | 2017-04-17 16:40 | History & Physical Bridge Note ---
H&P Re-Evaluation Bridge Note: I have examined the patient, reviewed the History & Physical and in the interval since the performance of the History & Physical I have noted the following changes of clinical significance: PT WITH TBS FOR PPM
--- NOTE | 2017-04-17 16:41 | Procedure Note ---
Pre-Mod Sedation Assessment General Date of Moderate Sedation: Apr 17, 2017. Vital Signs: Vital Signs Past 12 Hours Date Time Temp Pulse Resp B/P (MAP) Pulse Ox O2 Delivery O2 Flow Rate FiO2 04/17/17 12:00 Room Air 04/17/17 11:42 36.3 71 18 157/76 (103) 95 Room Air 04/17/17 10:42 36.3 61 18 174/88 94 Room Air 04/17/17 08:03 36.3 61 18 174/88 (116) 94 Room Air 04/17/17 08:00 Room Air Review Cardiovascular: regular rate, rhythm Abdomen: soft Lungs: lungs clear Airway Class: II Pre-Sedation Airway Assessment Oral Cavity: WNL Short Thick Neck: No Hx of Sleep Apnea: No Smoking Status: Former Smoker Mallampati Classification: Class II ASA Classification: Class II Procedure Planning Contraindications-for Mod Sed: None Yes Notes The planned sedation has been discussed with the patient and consent obtained. I have identified the patient, determined the appropriateness of sedation and have assessed the patient immediately prior to the procedure. All medicine(s) and interventions are by my order.
--- NOTE | 2017-04-17 16:41 | Procedure Note ---
Post-Mod Sedation Assessment General Date of Moderate Sedation Apr 17, 2017. Vital Signs: Vital Signs Past 12 Hours Date Time Temp Pulse Resp B/P (MAP) Pulse Ox O2 Delivery O2 Flow Rate FiO2 04/17/17 12:00 Room Air 04/17/17 11:42 36.3 71 18 157/76 (103) 95 Room Air 04/17/17 10:42 36.3 61 18 174/88 94 Room Air 04/17/17 08:03 36.3 61 18 174/88 (116) 94 Room Air 04/17/17 08:00 Room Air Review - Discharge Criteria Vital Signs Stable: Yes Alert/Oriented/Conversant: Yes Returned to Baseline Mental St: Yes Nausea Absent/Minimal: Yes Pain/Discomfort/Absent/Minimal: Yes Normal/Baseline Respirations: Yes Active Bleeding?: No Pt Received D/C Instructions: N/A Prescriptions Given: None Specific Proced. D/C Criteria Distal Pulses Present (Cardiac: N/A Groin site assessed-Card Cath: N/A Voided Prior To Discharge: N/A Discharged Patients Adult Escort/Transportation: N/A
--- NOTE | 2017-04-17 16:42 | [facility] Post Operative Brief Note ---
Immediate Operative Summary Operative Date Apr 17, 2017. Pre-Operative Diagnosis tbs Post-Operative Diagnosis same, probably PAT Procedure(s) Performed dual chamber rate responsive permanent pacemaker Surgeon kwadwo lugo [employer] Fab[employer]ator Surgeon(s) none Estimated Blood Loss 30cc Findings none Fluids (cc crystalloids) 200cc Specimens none Drains none Anesthesia 5mg versed and 125mcg fentanyl Complication(s) None Disposition PCU
[2017-04-17] MEDS ORDERED: ACETAMINOPHEN/CODEINE 300/30MG TAB PO PRN (16:45)
[2017-04-17] MEDS: METOPROLOL SUCC 25MG EXT REL TAB PO SCH (17:45)
--- NOTE | 2017-04-17 19:23 | OPERATIVE REPORT ---
DATE OF OPERATION: 04/17/2017 PREOPERATIVE DIAGNOSIS: Tachy-ashley syndrome. POSTOPERATIVE DIAGNOSIS: Same, paroxysmal atrial tachycardia. PROCEDURE: Dual chamber rate responsive permanent pacemaker under fluoroscopic guidance. SURGEON: Dr. Cheryl Up. GOLF COURSE MECHANIC: None. ANESTHESIA: Monitored and a conscious sedation given under my supervision, administered by Sravan Love. Start time 15:30. End time: 16:30. A total of 5 mg of Versed, 125 mcg of fentanyl. INTRAVENOUS FLUIDS: 200 mL. BLOOD LOSS: 30 mL. COMPLICATIONS: None. CONDITION: Stable. URINE OUTPUT: Not available. SPECIMENS: None. FINDINGS: None. DRAINS: None. INDICATIONS: This is an 86-year-old gentleman with past medical history for COPD, chronic kidney disease stage III, peripheral vascular disease status post endovascular repair of AAA, BPH. He ended up being transferred from the urology outpatient office to [facility] secondary to tachy-ashley syndrome, where he was having atrial tachycardia with rapid ventricular response in the 140s-150s, followed then by marked sinus bradycardia. He has an underlying idioventricular conduction delay and first-degree AV block. Due to evidence of tachy-ashley syndrome, he was recommended a permanent pacemaker. CONSENT: Consent was obtained prior to the patient going into the electrophysiology lab. The patient was informed of the risks, benefits and alternatives to the procedure. Risks include, but not limited to sudden cardiac , cardiac arrhythmias , cerebrovascular accident, myocardial infarction, injury to the blood vessels, chamber of the heart, lungs, bleeding and infection. The patient understood these risks and agreed to have the procedure as planned. Informed consent was obtained. DESCRIPTION OF THE PROCEDURE: The patient was brought into the electrophysiology lab in fasting state, he was connected to continuous property assessment monitor. A time-out was performed to ensure the patient identity and procedure correctly. The patient was prepped and draped over the left infraclavicular space in normal surgical standard fashion. He received prophylactic antibiotics prior to incision. Monitored conscious sedation was given throughout the procedure for the patient's comfort level. Hayes precautions were maintained throughout the procedure. A 10 mL of 1% lidocaine and bupivacaine mixture were given in the left deltopectoral groove. Incision was made in the left deltopectoral groove. Blunt dissection was performed then to identify the cephalic vein. The cephalic vein was identified and isolated using 0 silk ties. The vein was nicked with an 11 blade dayanna. A guidewire was inserted without any resistance. An 8-Latvian sheath was inserted over the guidewire without any resistance. The dilator was removed and a second guidewire was inserted through the 8-Latvian sheath without any resistance. The sheath was removed, flushed and dilator reinserted over it and then the sheath was reinserted over one of the guidewires without any resistance. The guidewire and dilator were removed and the right ventricular pacing lead was advanced into the right ventricle; however, it was not long enough, so we repositioned that into the right atrium and under fluoroscopic guidance into the right atrial appendage and adequate pacing and sensing thresholds and no diaphragmatic stimulation with high output pacing. The sheath was peeled away and lead was fixated to pectoralis muscle using 0 silk suture. A second 8-Latvian sheath was advanced over the retained guidewire without any resistance. The guidewire and dilator were removed. The right ventricular pacing lead was advanced into the right ventricle and positioned into the right ventricular apex under fluoroscopic guidance. There was adequate pacing and sensing thresholds and no diaphragmatic stimulation with high output pacing. The 8-Latvian sheath was peeled away and lead was fixated to pectoralis muscle using 0 silk suture. There was a lot of back bleeding as the cephalic vein was a big vein, so a 2-0 Vicryl pursestring was placed around the vein to prevent any further back bleeding. Another 10 mL of 1% lidocaine were given in the pectoralis fascia and then using blunt dissection, then the pectoralis fascia over the pectoralis muscle, a pacemaker pocket was created. The pocket was flushed with copious amounts of bacitracin and saline wash and inspected for hemostasis. The pulse generator was then attached to the leads making sure that the pins were in appropriate position passed the set screws and the set screws were all tightened. The pulse generator was then placed in the pocket, making sure that the leads were lying flat beneath the device and a stay stitch using 0 silk suture was used to secure the device to the pectoralis muscle. Incision was closed in 3-layer fashion using a 2-0 Vicryl interrupted suture followed by 3-0 Vicryl suture followed by a 4-0 Monocryl stitch and then Dermabond was applied. EQUIPMENT: 1. Pulse generator is a Medtronic Advisana [id number], serial number [id number]. 2. Right atrial lead Medtronic 5076-58 cm, serial number [id number]. 3. Right ventricular lead Medtronic 5076-65 cm, serial number [id number]. INTRAOPERATIVE TESTIN. Right atrial lead: P-wave is 2.2 millivolts, impedance 580 ohms, threshold 0.5 volts at 0.8 milliamps. 2. Right ventricular lead: R-wave is 12.4 millivolts, impedance 940 ohms, threshold 1.2 volts at 1.3 milliamps. FINAL MEASUREMENTS THROUGH THE DEVICE: 1. P-wave is 5.9 millivolts, impedance 456 ohms, threshold 0.25 volts at 0.4 milliseconds. 2. Right ventricular lead: R-wave is 9.5 millivolts, impedance 608 ohms, threshold 0.5 volts at 0.4 milliseconds. FINAL PARAMETERS: 1. MVP-R 60/120. Right atrial amplitude 3.5 volts, pulse width 0.4 milliseconds, sensitivity 0.3 millivolts. 2. Right ventricular amplitude 3.5 volts, pulse width 0.4 milliseconds, sensitivity 0.9 millivolts. IMPRESSION: Successful implantation of a dual chamber rate responsive permanent pacemaker under fluoroscopic guidance secondary to tachy-ashley syndrome. PLAN: Monitor the patient overnight, 12-lead EKG. No heparin is necessary. The patient does not have atrial fibrillation. He is having atrial tachycardia, throughout the case he was having some. Would recommend starting metoprolol 25 mg daily, given first dose now, probably need to increase this if his blood pressure will allow. He is not allowed to lift the left elbow or the left shoulder for 1 month. He cannot lift more than 10 pounds with the left arm for 2 weeks. He can shower tomorrow, let water run over the incision, do not scrub it. He should follow up in our Device Clinic in 7-10 days for device and wound check. According to his daughter, [facility] she will let us know. I attest to the content of the Intraoperative Record and any orders documented therein. Any exceptions are noted below. JEREMÍAS
--- NOTE | 2017-04-17 19:47 | CARDIOLOGY CONSULTATION ---
DATE OF CONSULTATION: 04/17/2017 REFERRING PHYSICIAN: Dr. Neff. REASON FOR CONSULTATION: Tachy-ashley syndrome. HISTORY OF PRESENT ILLNESS: This is an 86-year-old gentleman who has a past medical history for COPD, chronic kidney disease, stage 3, history of peripheral vascular disease, status post endovascular abdominal aortic aneurysm repair, BPH. 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 He was referred to the hospital. He does report some intermittent lightheadedness and dizziness as well as some palpitations in the past. Denies any chest pains or shortness of breath. Electrophysiology was consulted for a permanent pacemaker. ALLERGIES: VICODIN. HOME MEDICATIONS: Terazosin 10 mg at bedtime, finasteride 5 mg, oxycodone as needed, Levothyroxine 150 mcg, Lasix 40 mg, Flonase and Sinemet. PAST SURGICAL HISTORY: Tonsillectomy, cataract surgery, abdominal aortic aneurysm repair, arthroscopy of the knee, rotator cuff repair. PAST MEDICAL HISTORY: As noted above in HPI. FAMILY HISTORY: Noncontributory. SOCIAL HISTORY: He has a history of [id number] tobacco use, quit back in 1983, drinks about 1 beer a day. REVIEW OF SYSTEMS: All other 10-point review of systems are reviewed and are essentially negative at this time. See HPI for pertinent positives. PHYSICAL EXAMINATION: VITAL SIGNS: Temperature 36.3, heart rate 71, respirations 18, blood pressure 157/76. Oxygen saturation 95% on room air. GENERAL: He is awake, alert and oriented x3, in no acute distress, sitting up in the bed comfortably. HEENT: Normocephalic, atraumatic. Extraocular motion intact. Sclerae are nonicteric. Mucous membranes moist. NECK: Supple, no carotid bruits appreciated. No JVD. Carotid upstrokes normal. CARDIOVASCULAR: Normal S1, S2, regular rate and rhythm, no murmur appreciated. No palpable heave or thrill. PULMONARY: Clear to auscultation bilaterally. No wheezes, rales or rhonchi. ABDOMEN: Positive bowel sounds, soft, nontender, nondistended. EXTREMITIES: No clubbing or cyanosis in all fingers. No edema bilateral lower extremities. Peripheral pulses intact. NEUROLOGIC: Grossly intact. SKIN: Grossly intact. PERTINENT TESTING: EKG on admission was sinus rhythm with marked sinus arrhythmia at 68 beats per minute, first-degree AV block and possible inferior infarct. Monitor strips have been sinus with some runs of PAT. Twelve lead EKG from the outpatient cardiology is SVT probably a PAT at 140 beats per minute and complete right bundle-branch block, nonspecific ST abnormalities. Echocardiogram preserved ejection fraction of 60%-65%, nondilated cardiac chambers, and no significant valvular pathology. Hematology: WBC is 5.26, hemoglobin 13, hematocrit 39.9, platelets 97. Chemistry: Sodium 140, potassium 3.7, chloride 104, carbon dioxide 31, BUN 24, creatinine 1.2, glucose 106, calcium is 7.6, magnesium 2.4. X-ray: Emphysematous changes. IMPRESSION: 1. Tachy-ashley syndrome. 2. Paroxysmal atrial tachycardia. 3. History of endovascular abdominal aortic aneurysm repair. 4. Chronic kidney disease, stage 3. 5. Chronic obstructive pulmonary disease. 6. Benign prostatic hypertrophy. PLAN: Recommend a permanent pacemaker. The patient understood the risks, benefits, alternatives to the procedure. Risks include but not limited sudden cardiac , cardiac arrhythmias, cerebrovascular accident, myocardial infarction, injury to the blood vessels, chamber of the heart, lungs, bleeding and infection. The patient understood these risks and agreed to the procedure as planned. He will undergo the procedure today. JEREMÍAS
[2017-04-18 03:49] VITALS: BP 115/67; PULSE 101; TEMP 36.7; O2SAT 91
[2017-04-18 04:53] LABS: HEMATOCRIT 38.2 % (42-52); MEAN CELL VOLUME 97.4 fL (80-100); MEAN CORPUSCULAR HEMOGLOBIN 32.7 pg (25-34); RED BLOOD COUNT 3.92 M/uL (4.7-6.1); WHITE BLOOD COUNT 6.15 K/uL (4.8-10.8)
[2017-04-18 04:56] LABS: MEAN CORPUSCULAR HGB CONC 33.5 g/dl (32-36); MEAN PLATELET VOLUME 9.4 fL (7.4-10.4); PLATELET COUNT 93 K/uL (130-400)
[2017-04-18] MEDS: LEVOTHYROXINE 150 MCG TAB PO SCH (05:33)
[2017-04-18 05:34] LABS: BUN/CREATININE RATIO 15.5 (10-20); CALCIUM 8.1 mg/dl (8.5-10.1); CREATININE 1.4 mg/dl (0.60-1.40); POTASSIUM 4.5 mmol/L (3.5-5.1)
--- NOTE | 2017-04-18 07:46 | DIAGNOSTIC IMAGING REPORT ---
CHEST 2 VIEWS ROUTINE HISTORY: EXACT TIME ORDERED Evaluate for pneumothorax and lead placement COMPARISON: Chest 04/16/2017. FINDINGS: The lungs are clear. Cardiac silhouette is normal in size. No pleural effusions. No pneumothorax. Interval placement left-sided dual-chamber pacemaker. The leads appear intact. IMPRESSION: Left-sided dual-chamber pacemaker. No pneumothorax. Electronically signed by: Cali Ojeda M.D. 04/18/2017 7:45 AM Dictated Date/Time: 04/18/2017 7:44 AM
[2017-04-18 07:57] VITALS: BP 146/73; PULSE 63; TEMP 36.6; O2SAT 93
[2017-04-18] MEDS: METOPROLOL SUCC 25MG EXT REL TAB PO SCH (08:01)
[2017-04-18] MEDS: CARBIDOPA/LEVODOPA 25-250 1 EA TAB PO SCH ×2 (08:01→14:26)
[2017-04-18] MEDS: FINASTERIDE 5 MG TAB PO SCH (08:01)
--- NOTE | 2017-04-18 08:35 | Cardiology Follow-Up ---
Subjective Subjective Date of Service: Apr 18, 2017. Pt evaluation today including: conversation w/ patient, physical exam, lab review Pain: none Problem List Medical Problems: (1) Tachycardia-bradycardia syndrome Status: Acute Review of Systems Constitutional: No fatigue Respiratory: No shortness of breath, No dyspnea at rest Cardiac: No chest pain, No edema, No palpitations Abdomen: No diarrhea Endo: No fatigue Objective Vital Signs Last Vital Signs Documentation Date Time Temp Pulse Resp B/P (MAP) Pulse Ox O2 Delivery O2 Flow Rate FiO2 04/18/17 07:57 36.6 63 16 146/73 (97) 93 Room Air Physical Exam: General Appearance: WD/WN, no apparent distress Eyes: bilateral eyes PERRL, bilateral eyes EOMI Neck: supple, no JVD Respiratory/Chest: lungs clear, normal breath sounds Cardiovascular: regular rate, rhythm, no edema, no murmur Abdomen: normal bowel sounds, soft Extremities: no pedal edema Neurologic/Psychiatric: alert, oriented x 3 Skin: warm/dry, no rash Assessment and Plan Impression: 1. TBS s/p dual chamber 04/17/2017 2. PAT improved with BB 3. COPD 4. UTI 5. BPH Plan: -Ok for discharge home from cardiac perspective today -Continue toprol 25mg daily upon discharge; we can titrate up the dose as an outpatient -Not allowed to left the left elbow over the left shoulder for 1 month and no lifting more than 10 pounds with the left arm for 2 weeks -Can shower tomorrow -Wound and device check in 7-10 days in [facility] device clinic -F/u with general cardiology in 3-4 weeks -ABX for UTI as per hospitalist Discharge planning: home Medications: Medications Administered Medications (Trade) Dose Ordered Sig/Asher Route Start Time Stop Time Status Last Admin Dose Admin Metoprolol Tartrate (Lopressor Iv) 2.5 mg NOW STAT IV 04/16/17 12:47 04/16/17 12:48 DC 04/16/17 12:53 2.5 MG Heparin Sodium/ Dextrose (Heparin 25,000 Unit/500ml D5W) 25,000 unit STK-MED ONCE .ROUTE 04/16/17 14:32 04/16/17 14:33 DC 04/16/17 14:38 25,000 UNIT Carbidopa/Levodopa (Sinemet 25/ 250MG Tab) 1 tab TID PO 04/16/17 21:00 05/16/17 20:59 04/18/17 08:01 1 TAB Finasteride (Proscar Tab) 5 mg DAILY PO 04/17/17 09:00 05/17/17 08:59 04/18/17 08:01 5 MG Levothyroxine Sodium (Synthroid Tab) 150 mcg DAILYBB PO 04/17/17 06:00 05/17/17 06:59 04/18/17 05:33 150 MCG Oxycodone/ Acetaminophen (Percocet 5-325mg Tab) 1 tab Q4H PRN PO 04/16/17 14:45 04/30/17 14:44 04/17/17 17:44 1 TAB Terazosin HCl (Hytrin Cap) 10 mg HS PO 04/16/17 21:00 05/16/17 20:59 04/17/17 20:29 10 MG Heparin Sodium (Porcine) 4500 unit/Syringe 4.5 ml @ 10 mls/min NOW ONCE IV 04/16/17 21:00 04/16/17 21:01 DC 04/16/17 21:06 10 MLS/MIN Cefazolin Sodium (Kefzol Iv) 2 gm STK-MED ONCE IV 04/17/17 15:07 04/17/17 15:08 DC 04/17/17 15:07 2 GM Midazolam HCl (Versed Inj) 5 mg STK-MED ONCE .ROUTE 04/17/17 15:11 04/17/17 15:12 DC 04/17/17 15:11 5 MG Fentanyl Citrate (Fentanyl Inj) 100 mcg STK-MED ONCE .ROUTE 04/17/17 15:11 04/17/17 15:12 DC 04/17/17 15:11 100 MCG Fentanyl Citrate (Fentanyl Inj) 100 mcg STK-MED ONCE .ROUTE 04/17/17 16:11 04/17/17 16:12 DC 04/17/17 16:11 25 MCG Acetaminophen/ Codeine Phosphate (Tylenol w/ Codeine #3 Tab) 1 tab for pain scale 4-6 2 t... Q4H PRN PO 04/17/17 16:45 05/17/17 16:44 04/18/17 03:55 1 TAB Metoprolol Succinate (Toprol Xl Tab) 25 mg QAM PO 04/17/17 18:00 05/17/17 17:59 04/18/17 08:01 25 MG Lab Results: Telemetry: SR 86bpm APCs ECG: SR CXR: No PTX RA & RV lead in place PPM Interrogation Today: Normal function Stable RA & RV testing from implant and wnl 8.5% AP Last 24 Hours Test 04/18/17 04:33 White Blood Count 6.15 K/uL Red Blood Count 3.92 M/uL Hemoglobin 12.8 g/dL Hematocrit 38.2 % Mean Corpuscular Volume 97.4 fL Mean Corpuscular Hemoglobin 32.7 pg Mean Corpuscular Hemoglobin Concent 33.5 g/dl RDW Standard Deviation 48.6 fL RDW Coefficient of Variation 13.7 % Platelet Count 93 K/uL Mean Platelet Volume 9.4 fL Activated Partial Thromboplast Time 25.9 SECONDS Partial Thromboplastin Ratio 1.0 Sodium Level 139 mmol/L Potassium Level 4.5 mmol/L Chloride Level 104 mmol/L Carbon Dioxide Level 32 mmol/L Anion Gap 3.0 mmol/L Blood Urea Nitrogen 22 mg/dl Creatinine 1.40 mg/dl Est Creatinine Clear Calc Drug Dose 51.8 ml/min Estimated GFR () 53.1 Estimated GFR (Non- 45.8 BUN/Creatinine Ratio 15.5 Random Glucose 101 mg/dl Calcium Level 8.1 mg/dl
[2017-04-18] MEDS ORDERED: CEFTRIAXONE SOD INJ 1 GM in DEXTROSE 5% ADD-VANTAGE 50ML 50 ML IV SCH (10:00)
--- NOTE | 2017-04-18 11:26 | Progress Note ---
Medicine Progress Note Date & Time of Visit: Apr 18, 2017 at 11:16. Subjective s/p pacemaker placement yesterday states he feels fine overall today has minimal pain on the pacemaker insertion site no dizziness, chest pain, dyspnea, palpitations no abdominal pain ,nausea/vomiting, fever/ chills, dysuria, hematuria denies other symptoms states he is ready and would like to be discharged today no other symptoms Objective Last 8 Hrs Date Time Temp Pulse Resp B/P (MAP) Pulse Ox O2 Delivery O2 Flow Rate FiO2 04/18/17 08:00 Room Air 04/18/17 07:57 36.6 63 16 146/73 (97) 93 Room Air 04/18/17 04:00 Room Air 04/18/17 03:49 36.7 101 17 115/67 (83) 91 Room Air Physical Exam: General- oriented x 3, not in distress, speaks in sentences with no effort Eyes- anicteric Neck- no JVD Lungs- clear breath sounds bilaterally, no rales/wheezes Chest- pacemaker insertion site left lateral chest wall: incision site healing well, mild hematoma and swelling- no warmth Heart- regular rhythm; no murmur, normal rate Abdomen- normal bowel sounds, soft, nontender Extremities- no pretibial edema, no calf tenderness; peripheral pulses intact Neuro- alert, oriented x 3; no gross focal neuro deficits Skin- warm & dry Laboratory Results: Last 24 Hours Test 04/18/17 04:33 White Blood Count 6.15 K/uL Red Blood Count 3.92 M/uL Hemoglobin 12.8 g/dL Hematocrit 38.2 % Mean Corpuscular Volume 97.4 fL Mean Corpuscular Hemoglobin 32.7 pg Mean Corpuscular Hemoglobin Concent 33.5 g/dl RDW Standard Deviation 48.6 fL RDW Coefficient of Variation 13.7 % Platelet Count 93 K/uL Mean Platelet Volume 9.4 fL Activated Partial Thromboplast Time 25.9 SECONDS Partial Thromboplastin Ratio 1.0 Sodium Level 139 mmol/L Potassium Level 4.5 mmol/L Chloride Level 104 mmol/L Carbon Dioxide Level 32 mmol/L Anion Gap 3.0 mmol/L Blood Urea Nitrogen 22 mg/dl Creatinine 1.40 mg/dl Est Creatinine Clear Calc Drug Dose 51.8 ml/min Estimated GFR () 53.1 Estimated GFR (Non- 45.8 BUN/Creatinine Ratio 15.5 Random Glucose 101 mg/dl Calcium Level 8.1 mg/dl Assessment & Plan 86 year old male with history of COPD, Pulmonary Hypertension, AAA s/p Repair, BPH, Hypothyroidism presenting with tachycardia. PAROXYSMAL ATRIAL TACHYCARDIA Unclear onset; had intermittent palpations for several months Discovered at urology clinic; was SOB with elevated HR; EKG showed narrow complex tachycardia 144 bpm with regular HR consistent with paroxysmal SVT or atrial flutter; assessed by Dr. Calvo at clinic; monitor showed intermittent sinus rhythm 75 bpm followed by recurrent tachycardia, sent to ER Received Lopressor 2.5 mg IV on arrival to ER Electrolytes and TSH WNL echo: n The study was technically limited. n The left ventricle is normal in size. n No regional wall motion abnormalities noted. n Ejection Fraction = 60-65%. -- s/p Dual Chamber Pacemaker Placement by Dr. Ghosh 04/17/17 doing fine post procedure -- discharge plan: -Continue toprol 25mg daily upon discharge -Not allowed to left the left elbow over the left shoulder for 1 month and no lifting more than 10 pounds with the left arm for 2 weeks -Can shower tomorrow -Wound and device check in 7-10 days in [facility] device clinic -F/u with general cardiology in 3-4 weeks GRAM NEGATIVE BACILLI UTI -- Urine culture: gram neg bacilli, >100,000 colonies -- given Cefazolin x 1 day, Ceftriaxone x 1 day -- continue with Levaquin 250mg po x 5 days will ff up final urine culture report and call patient if organism resistant to Levaquin HYPERTENSION Metoprolol 25mg po daily started stable MODERATE COPD stable Continue Breo Ellipta inhaler BPH WITH CHRONIC URINARY RETENTION Continue finasteride and terazosin Self cath BID CKD STAGE III crea at baseline HYPOTHYROIDISM tsh/t4 normal Continue levothyroxine CHRONIC LOW BACK PAIN Continue PRN Percocet CODE STATUS Full code DISPOSITION d/c home today when ok with Cardio ff up with PCP in 1 week Pacemaker Check next week in [facility] in 2-3 weeks c/o Dr. Neff Discharge planning: home Current Inpatient Medications: Current Inpatient Medications Medications (Trade) Dose Ordered Sig/Asher Route Start Time Stop Time Status Last Admin Dose Admin Miscellaneous (Iv Fluids Completed) 1 ea PRN PRN N/A 04/16/17 14:00 04/16/18 13:59 Acetaminophen (Tylenol Tab) 650 mg Q4H PRN PO 04/16/17 14:30 05/16/17 14:29 Ondansetron HCl (Zofran Inj) 4 mg Q6H PRN IV 04/16/17 14:30 05/16/17 14:29 Metoprolol Tartrate (Lopressor Iv) 2.5 mg Q6 PRN IV 04/16/17 14:30 05/16/17 14:29 Carbidopa/Levodopa (Sinemet 25/ 250MG Tab) 1 tab TID PO 04/16/17 21:00 05/16/17 20:59 04/18/17 08:01 1 TAB Finasteride (Proscar Tab) 5 mg DAILY PO 04/17/17 09:00 05/17/17 08:59 04/18/17 08:01 5 MG Fluticasone Propionate (Flonase Nasal [place]) 2 sprays DAILY PRN JOSEF 04/16/17 14:45 05/16/17 14:44 Levothyroxine Sodium (Synthroid Tab) 150 mcg DAILYBB PO 04/17/17 06:00 05/17/17 06:59 04/18/17 05:33 150 MCG Oxycodone/ Acetaminophen (Percocet 5-325mg Tab) 1 tab Q4H PRN PO 04/16/17 14:45 04/30/17 14:44 04/17/17 17:44 1 TAB Terazosin HCl (Hytrin Cap) 10 mg HS PO 04/16/17 21:00 05/16/17 20:59 04/17/17 20:29 10 MG Miscellaneous Information (Order Awaiting Action) 1 ea QS N/A 04/16/17 16:00 05/16/17 15:59 Hydroxyzine HCl (Vistaril Tab) 25 mg TID PRN PO 04/16/17 14:45 05/16/17 14:44 Ipratropium [place] (Atrovent 0.02% 0.5MG/2.5ML Neb) 0.5 mg Q6H PRN INH 04/16/17 15:00 05/16/17 14:59 Levalbuterol (Xopenex 0.63 Mg/ 3 Ml Neb) 0.63 mg Q6H PRN INH 04/16/17 15:00 05/16/17 14:59 Acetaminophen/ Codeine Phosphate (Tylenol w/ Codeine #3 Tab) 1 tab for pain scale 4-6 2 t... Q4H PRN PO 04/17/17 16:45 05/17/17 16:44 04/18/17 03:55 1 TAB Metoprolol Succinate (Toprol Xl Tab) 25 mg QAM PO 04/17/17 18:00 05/17/17 17:59 04/18/17 08:01 25 MG Ceftriaxone Sodium 1 gm/ Dextrose 50 ml @ 100 mls/hr QAM IV 04/18/17 10:00 04/28/17 09:59 04/18/17 10:13 100 MLS/HR
[2017-04-18] MEDS ORDERED: LEVO-17 PO (11:32)
[2017-04-18] MEDS ORDERED: TPRSR25 PO (11:32)
[2017-04-18 11:37] VITALS: BP 132/71; PULSE 70; TEMP 36.5; O2SAT 94
--- NOTE | 2017-04-18 11:40 | Discharge Instructions ---
Discharge Instructions Date of Service Apr 18, 2017. Admission Reason for Admission: Tachycardia Discharge Discharge Diagnosis / Problem: Paroxysmal Atrial Tachycardia Discharge Goals Goal(s): Diagnostic testing, Therapeutic intervention Activity Recommendations Activity Limitations: as noted below (no heavy exertion until re-evaluated by Primary Care Physician; ) Lifting Limitations: no more than 10 pounds (on the left arm), until after follow-up appointment Exercise/Sports Limitations: until after follow-up appointment Shower/Bathe: tomorrow Driving or Machine Use: no driving until re-evaluated by Primary Care Physician Not allowed to left the left elbow over the left shoulder for 1 month and no lifting more than 10 pounds with the left arm for 2 weeks PLEASE REVIEW YOUR NEW MEDICATION LIST AND FOLLOW INSTRUCTIONS CAREFULLY. CALL ROLL COVERER OR RETURN TO ER IMMEDIATELY IF WITH INCREASING PAIN, REDNESS, SWELLING, DISCHARGE ON THE PACEMAKER SITE. CALL PRIMARY CARE PHYSICIAN IF WITH FEVER/CHILLS, INCREASING ABDOMINAL PAIN, CHANGES WITH URINATION. CALL 911 IF WITH PALPITATIONS, DIZZINESS, SHORTNESS OF BREATH, CHEST PAIN. FOLLOW UP WITH PRIMARY CARE PHYSICIAN DR. SILVA ON MONDAY APRIL 24, 2017 AT 2:15PM. FOLLOW UP WITH [facility] NEXT WEEK FOR PACEMAKER CHECK ( CLINIC TO CALL YOU FOR APPOINTMENT). FOLLOW UP WITH ROLL COVERER DR. SALCEDO IN 3-4 WEEKS. (TEL. NO. ). Current Hospital Diet Patient's current hospital diet: AHA Diet (Heart Healthy) Discharge Diet Recommended Diet: AHA Diet (Heart Healthy) Procedures Procedures Performed: dual chamber rate responsive permanent pacemaker placement Pending Studies Studies pending at discharge: yes List of pending studies: Pacemaker Check next week Medical Emergencies . Who to Call and When: Medical Emergencies: If at any time you feel your situation is an emergency, please call 911 immediately. . Non-Emergent Contact Non-Emergency issues call your: Primary Care Provider, Sales And Merchandising Representative Call Non-Emergent contact if: you have a fever, your pain is not controlled, your pain is worsening, wound has increased drainage, wound has increased redness, wound has increased pain, you have any medication questions . Past History Medical & Surgical History: (1) Chronic renal disease (2) COPD (chronic obstructive pulmonary disease) (3) Tachycardia (4) GERD (gastroesophageal reflux disease) (5) Hypertension (6) Hypothyroidism (7) BPH w urinary obs/LUTS (8) Low back pain (9) CKD (chronic kidney disease), stage III (10) Dysphagia, pharyngoesophageal phase (11) Osteoarthritis (12) S/P AAA repair (13) H/O colonoscopy with polypectomy (14) S/P arthroscopy of knee (15) S/P rotator cuff repair (16) S/P tonsillectomy and adenoidectomy (17) History of cataract surgery (18) H/O right heart catheterization . "Provider Documentation" section prepared by Cale Harp. . VTE Core Measure Inpt VTE Proph given/why not?: Unfractionated heparin SQ
--- NOTE | 2017-04-18 11:44 | Discharge Summary ---
Discharge Summary Date of Service Apr 18, 2017. Discharge Summary Admission Date: Apr 17, 2017 at 16:31 Discharge Date: Apr 18, 2017 Discharge Disposition: Home Principal Diagnosis: PAROXYSMAL ATRIAL TACHYCARDIA Secondary Diagnoses/Problems: Please refer to hospital course below. Procedures: s/p Dual Chamber Pacemaker Placement 04/17/17 Consultations: [facility] Dr. Neff/Jeovanny Pending Studies/Follow-Up: Please refer to hospital course below. Medication Reconciliation New Medications: Levofloxacin (Levaquin) 250 Mg Tab 250 MG PO DAILY for 5 Days, #5 TAB 0 Refills Metoprolol Succinate (Metoprolol Succinate ER) 25 Mg Tabcr 25 MG PO QAM for 30 Days, #30 TABS 2 Refills Continued Medications: Carbidopa/Levodopa (Sinemet 25MG/250MG) Tab 1 TAB PO TID, TAB Finasteride (Proscar) 5 Mg Tab 5 MG PO DAILY, TAB Fluticasone Furoate-Vilanterol (Breo Ellipta 200-25 Mcg/INH) 1 Inh Inh 1 PUFF INH DAILY Fluticasone Propionate (Nasal) (Flonase Allergy Relief) 50 Mcg/Act Spr 2 SPRAYS JOSEF DAILY PRN for Nasal Congestion Hydroxyzine Pamoate (Vistaril) 25 Mg Cap 1 CAP PO TID PRN for Itching for 30 Days, #90 CAP 1 Refill Ipratropium-Albuterol (Combivent Respimat) 1 Aer Aer 2 PUFFS INH Q6H PRN for Wheezing, INH Levothyroxine Sodium (Synthroid) 150 Mcg Tab 150 MCG PO DAILY Oxycodone/Acetaminophen 5MG/325MG (Oxycodone/Acetaminophen 5MG/325MG) 1 Tab Tab 1 TABLET PO Q4H PRN for Moderate Pain, TAB Terazosin Hcl (Hytrin) 10 Mg Cap 10 MG PO HS, CAP Admission Information HPI (per Admitting provider): This is an 86 y/o male with PMH of AAA s/p endovascular repair, hypertension, moderate COPD, mild pulmonary hypertension, BPH with chronic urinary retention, CKD stage III, hypothyroidism, and other problems listed below who was referred to the ED from clinic for tachycardia. Patient was seen by Dr. Funes in routine follow up for urinary retention today. Per Dr. Calvo's documentation in [facility], patient was noted to be SOB with elevated HR in urology clinic. EKG showed narrow complex tachycardia 144 bpm with regular HR consistent with paroxysmal SVT or atrial flutter. Pt was assessed by Dr. Calvo in urology clinic. Reportedly on monitor he had intermittent sinus rhythm at 75 bpm followed by recurrent tachycardia. Patient was transferred to ER by EMS and given dose of IV metoprolol 2.5 mg. In the ER patient's HR has been 60s-70s. EKG shows sinus rhythm. He is currently feeling asymptomatic. He notes feeling "heart racing" palpitations in clinic when tachycardia episodes occurred. He reports prior intermittent palpitations for several months. Palpitations occur with minimal exertion. He has been lightheaded. No syncopal episodes. He reports chronic fatigue and ARIAS with just a few steps of ambulation and orthopnea. Pt states his breathing is at baseline. Has chronic dry cough which is unchanged. Pt self caths BID and voids a small amount in between. Denies fever, URI symptoms, syncope, chest pain, N/V/D, dysuria, cloudy urine, calf pain, edema, abnormal bleeding focal neurologic symptoms. Prior stress echo 2013 was non-ischemic with EF 55-59%, no significant valvular disease. Prior right heart cath at [facility] in 2014 showed mild pulmonary hypertension. No prior diagnosis of arrhythmia. Denies hx of DM, TIA, CVA. Physical Exam (per Admitting): General Appearance: WD/WN, no apparent distress Head: normocephalic, atraumatic Eyes: normal inspection, PERRL, EOMI ENT: pharynx normal, + pertinent finding (hard of hearing) Neck: supple, no JVD, trachea midline Respiratory/Chest: lungs clear, normal breath sounds, no respiratory distress, no accessory muscle use Cardiovascular: regular rate, rhythm, no murmur Abdomen/GI: normal bowel sounds, non tender, soft Extremities/Musculoskelatal: normal inspection, no calf tenderness, no pedal edema Neurologic/Psych: alert, normal mood/affect, oriented x 3, + pertinent finding (no focal deficit on gross examination) Skin: normal color, warm/dry Hospital Course 86 year old male with history of COPD, Pulmonary Hypertension, AAA s/p Repair, BPH, Hypothyroidism presenting with tachycardia. PAROXYSMAL ATRIAL TACHYCARDIA s/p Dual Chamber Pacemaker Placement by Dr. Ghosh 04/17/17 Unclear onset; had intermittent palpations for several months Discovered at urology clinic; was SOB with elevated HR; EKG showed narrow complex tachycardia 144 bpm with regular HR consistent with paroxysmal SVT or atrial flutter; assessed by Dr. Calvo at clinic; monitor showed intermittent sinus rhythm 75 bpm followed by recurrent tachycardia, sent to ER Received Lopressor 2.5 mg IV on arrival to ER Electrolytes and TSH WNL echo: n The study was technically limited. n The left ventricle is normal in size. n No regional wall motion abnormalities noted. n Ejection Fraction = 60-65%. -- s/p Dual Chamber Pacemaker Placement by Dr. Ghosh 04/17/17 doing fine post procedure -- discharge plan: -Continue toprol 25mg daily -Not allowed to left the left elbow over the left shoulder for 1 month and no lifting more than 10 pounds with the left arm for 2 weeks -Can shower tomorrow -Wound and device check in 7-10 days in [facility] device clinic -F/u with general cardiology in 3-4 weeks GRAM NEGATIVE BACILLI UTI -- Urine culture: gram neg bacilli, >100,000 colonies -- given Cefazolin x 1 day, Ceftriaxone x 1 day -- continue with Levaquin 250mg po x 5 days will ff up final urine culture report and call patient if organism resistant to Levaquin -- may need to repeat UA to follow up post treatment HYPERTENSION Metoprolol 25mg po daily started stable MODERATE COPD stable Continue Breo Ellipta inhaler BPH WITH CHRONIC URINARY RETENTION Continue finasteride and terazosin Self cath BID CKD STAGE III crea at baseline HYPOTHYROIDISM tsh/t4 normal Continue levothyroxine CHRONIC LOW BACK PAIN Continue PRN Percocet THROMBOCYTOPENIA Plt 90s no bleeding monitor DISPOSITION d/c home today when ok with Cardio ff up with PCP in 1 week Pacemaker Check next week in [facility] in 2-3 weeks c/o Dr. Neff Total time spent on discharge = 35 minutes This includes examination of the patient, discharge planning, medication reconciliation, and communication with other providers. Discharge Instructions Discharge Instructions Date of Service Apr 18, 2017. Admission Reason for Admission: Tachycardia Discharge Discharge Diagnosis / Problem: Paroxysmal Atrial Tachycardia Discharge Goals Goal(s): Diagnostic testing, Therapeutic intervention Activity Recommendations Activity Limitations: as noted below (no heavy exertion until re-evaluated by Primary Care Physician; ) Lifting Limitations: no more than 10 pounds (on the left arm), until after follow-up appointment Exercise/Sports Limitations: until after follow-up appointment Shower/Bathe: tomorrow Driving or Machine Use: no driving until re-evaluated by Primary Care Physician Not allowed to left the left elbow over the left shoulder for 1 month and no lifting more than 10 pounds with the left arm for 2 weeks PLEASE REVIEW YOUR NEW MEDICATION LIST AND FOLLOW INSTRUCTIONS CAREFULLY. CALL LEGAL TRANSCRIPTIONIST OR RETURN TO ER IMMEDIATELY IF WITH INCREASING PAIN, REDNESS, SWELLING, DISCHARGE ON THE PACEMAKER SITE. CALL PRIMARY CARE PHYSICIAN IF WITH FEVER/CHILLS, INCREASING ABDOMINAL PAIN, CHANGES WITH URINATION. CALL 911 IF WITH PALPITATIONS, DIZZINESS, SHORTNESS OF BREATH, CHEST PAIN. FOLLOW UP WITH PRIMARY CARE PHYSICIAN DR. SILVA ON MONDAY APRIL 24, 2017 AT 2:15PM. [facility] NEXT WEEK FOR PACEMAKER CHECK ( CLINIC TO CALL YOU FOR APPOINTMENT). FOLLOW UP WITH LEGAL TRANSCRIPTIONIST DR. NEFF IN 3-4 WEEKS. (TEL. NO. ). Current Hospital Diet Patient's current hospital diet: AHA Diet (Heart Healthy) Discharge Diet Recommended Diet: AHA Diet (Heart Healthy) Procedures Procedures Performed: dual chamber rate responsive permanent pacemaker placement Pending Studies Studies pending at discharge: yes List of pending studies: Pacemaker Check next week Medical Emergencies . Who to Call and When: Medical Emergencies: If at any time you feel your situation is an emergency, please call 911 immediately. . Non-Emergent Contact Non-Emergency issues call your: Primary Care Provider, [facility] Call Non-Emergent contact if: you have a fever, your pain is not controlled, your pain is worsening, wound has increased drainage, wound has increased redness, wound has increased pain, you have any medication questions . Past History Medical & Surgical History: (1) Chronic renal disease (2) COPD (chronic obstructive pulmonary disease) (3) Tachycardia (4) GERD (gastroesophageal reflux disease) (5) Hypertension (6) Hypothyroidism (7) BPH w urinary obs/LUTS (8) Low back pain (9) CKD (chronic kidney disease), stage III (10) Dysphagia, pharyngoesophageal phase (11) Osteoarthritis (12) S/P AAA repair (13) H/O colonoscopy with polypectomy (14) S/P arthroscopy of knee (15) S/P rotator cuff repair (16) S/P tonsillectomy and adenoidectomy (17) History of cataract surgery (18) H/O right heart catheterization . "Provider Documentation" section prepared by Cale Harp. . VTE Core Measure Inpt VTE Proph given/why not?: Unfractionated heparin SQ
[2017-04-18 14:05] VITALS: BP 132/71; PULSE 70; TEMP 36.5; O2SAT 94
== END 2017-04-18 15:31 | disposition home or self-care (01) | DRG 243 ==
LOC: EDBD 12:35 → C.EDA 12:36 → C.2T 13:50 → EDBEDREQTM 16:16 → EDBEDREQSVC 16:16 → ENRESERV 17:05 → OBSVTOIN 04-17 16:31
PROVIDERS: ADMIT Internal Medicine; ATTEND Internal Medicine
PROC: 0JH606Z Insertion of Pacemaker, Dual Chamber into Chest Subcutaneous Tissue and Fascia, Open Approach (ICD-10-PCS; principal; 2017-04-17 15:12)
PROC: 02H63JZ Insertion of Pacemaker Lead into Right Atrium, Percutaneous Approach (ICD-10-PCS; principal; 2017-04-17 15:12)
PROC: 02HK3JZ Insertion of Pacemaker Lead into Right Ventricle, Percutaneous Approach (ICD-10-PCS; principal; 2017-04-17 15:12)
DX: I49.5 Sick sinus syndrome (principal); N39.0 Urinary tract infection, site not specified; I12.9 Hypertensive chronic kidney disease with stage 1 through stage 4 chronic kidney disease, or unspecified chronic kidney disease; N18.3 Chronic kidney disease, stage 3 (moderate); J44.9 Chronic obstructive pulmonary disease, unspecified; K21.9 Gastro-esophageal reflux disease without esophagitis; M19.90 Unspecified osteoarthritis, unspecified site; N40.1 Benign prostatic hyperplasia with lower urinary tract symptoms; R33.8 Other retention of urine; I27.2 Other secondary pulmonary hypertension; E03.9 Hypothyroidism, unspecified; R13.14 Dysphagia, pharyngoesophageal phase; G89.29 Other chronic pain; M54.5 Low back pain; I44.0 Atrioventricular block, first degree; D69.6 Thrombocytopenia, unspecified; Z86.010 Personal history of colon polyps; Z80.8 Family history of malignant neoplasm of other organs or systems; Z87.891 Personal history of nicotine dependence; Z79.899 Other long term (current) drug therapy